=== PATIENT | female | born 1940 | race Caucasian/White ===

== ENCOUNTER → 2016-11-01 | Outpatient (CLI) | payer OTHER | END | disposition home or self-care (01) | LOC: C.PAPS 15:14 | PROVIDERS: ATTEND Obstetrics & Gynecology | DX: Z12.4 Encounter for screening for malignant neoplasm of cervix (principal); N95.2 Postmenopausal atrophic vaginitis ==

== ENCOUNTER → 2016-12-19 | Outpatient (CLI) | payer OTHER, BC ==
--- NOTE | 2016-12-19 14:19 | MAMMOGRAPHY REPORT ---
BILATERAL DIGITAL SCREENING MAMMOGRAM WITH CAD: 12/19/2016 CLINICAL HISTORY: Routine screening. Patient has no complaints. TECHNIQUE: Bilateral CC, MLO and repeat right MLO views were obtained. Current study was also evalu ated with a Computer Aided Detection (CAD) system. COMPARISON: Comparison is made to exams dated: 03/24/2015 mammogram, 12/28/2013 mammogram, 08/13/2012 m ammogram, 05/07/2012 mammogram, and 08/07/2010 mammogram. BREAST COMPOSITION: There are scattered areas of fibroglandular density in both breasts. FINDINGS: There is a 5 mm focal asymmetry in the upper outer middle one third of the left breast, fo r which additional spot compression tomosynthesis views and possibly ultrasound are recommended. There are scattered stable benign-appearing coarse and round calcifications bilaterally. Mild vascul ar calcification in the breasts. No other suspicious mass, architectural distortion or cluster of kristin rocalcifications is seen. IMPRESSION: ACR BI-RADS CATEGORY 0: INCOMPLETE EVALUATION: NEED ADDITIONAL IMAGING EVALUATION The 5 mm focal asymmetry in the upper outer quadrant of the left breast needs additional evaluation. The patient will be called to schedule an appointment. Approximately 10% of breast cancers are not detected with mammography. A negative mammographic report should not delay biopsy if a clinically suggestive mass is present. Pavithra Isidro M.D. ay/:12/19/2016 13:38:29 Field Crop Farmworker: Arlyn Ugarte, [facility] letter sent: Addl Imaging 0 BI-RADS Code: ACR BI-RADS Category 0: Incomplete Evaluation: Need Additional Imaging Evaluation
== END | disposition home or self-care (01) ==
LOC: C.MAMM 12:57
PROVIDERS: ATTEND Obstetrics & Gynecology
DX: Z12.31 Encounter for screening mammogram for malignant neoplasm of breast (principal); N64.89 Other specified disorders of breast

== ENCOUNTER → 2016-12-31 | Outpatient (CLI) | payer OTHER, BC | END | disposition home or self-care (01) | LOC: C.LAB1850 07:39 | PROVIDERS: ATTEND Obstetrics & Gynecology | DX: R73.09 Other abnormal glucose (principal); Z83.3 Family history of diabetes mellitus; N64.89 Other specified disorders of breast; N63 Unspecified lump in breast ==

== ENCOUNTER → 2016-12-31 | Outpatient (CLI) | payer OTHER, BC ==
--- NOTE | 2016-12-31 13:34 | MAMMOGRAPHY REPORT ---
UNILATERAL LEFT DIGITAL DIAGNOSTIC MAMMOGRAM TOMOSYNTHESIS AND TARGETED LEFT ULTRASOUND: 12/31/2016 CLINICAL HISTORY: 76-year-old woman called back from screening mammography for a focal asymmetry in t he upper outer quadrant of the left breast. TECHNIQUE: Spot compression CC and MLO 2-D and tomosynthesis images of the left breast were obtained . COMPARISON: Comparison is made to exams dated: 12/19/2016 mammogram - [facility], 1 05/25/2014 mammogram, 03/24/2015 mammogram - [facility], 12/28/2013 mammogram, 12/28/2013 mammog shaina - [facility], and 08/13/2012 mammogram. BREAST COMPOSITION: There are scattered areas of fibroglandular density in the left breast. FINDINGS: The spot compression views of the left breast demonstrate a persistent mass versus focal a symmetry in the approximate 12:00 middle one third of the left breast measuring 5.2 x 5.3 x 4.6 mm. No associated architectural distortion or microcalcification. Further evaluation with ultrasound was performed. Targeted ultrasound was performed in the 12:00 axis and upper outer quadrant of the left breast. In the 12:30 to 1:00 axis of the left breast, 5 cm from the nipple, there is a subtle hypoechoic solid-a ppearing mass measuring 5.6 x 2.7 x 4.4 mm. This is thought to correlate with the mammographic findi ng and is indeterminate given the solid nature. Definitive characterization with an ultrasound guide d core needle biopsy is recommended. IMPRESSION: ACR BI-RADS CATEGORY 4: SUSPICIOUS, TARGETED ULTRASOUND ACR BI-RADS CATEGORY 4: SUSPICIO US 1. Ultrasound guided core needle biopsy is recommended for an indeterminate solid 5.6 mm mass in the approximate 12:30 left breast, 5 cm from the nipple, thought to correlate with the mammographic find ing. Correlation with postprocedure mammograms is recommended for definitive mammographicultrasound correlation. These results and recommendations were discussed with the patient at the time of the exam. She tenta tively scheduled the left breast biopsy prior to leaving our department. Approximately 10% of breast cancers are not detected with mammography. A negative mammographic report should not delay biopsy if a clinically suggestive mass is present. Pavithra Isidro M.D. ay/:12/31/2016 12:29:12 [employer] T[employer] Builder: Arlyn Ugarte, [facility] letter sent: Abnormal 4/5 BI-RADS Code: ACR BI-RADS Category 4: Suspicious Ultrasound BI-RADS: ACR BI-RADS Category 4: Suspici ous
== END | disposition home or self-care (01) ==
LOC: C.MAMM 11:07
PROVIDERS: ATTEND Obstetrics & Gynecology
DX: N64.89 Other specified disorders of breast (principal); N63 Unspecified lump in breast

== ENCOUNTER → 2017-01-04 | Outpatient (CLI) | payer OTHER, BC ==
--- NOTE | 2017-01-04 11:24 | Discharge Instructions ---
Discharge Instructions Procedure Procedure Date: Jan 04, 2017. Reason for visit: Left Mass. Discharge Discharge Date: Jan 04, 2017. Discharge Diagnosis: status post breast biopsy Instructions Activity Recommendations: Additional Limitations (see below) Return to School/Work: no limitations Recommended Home Diet: No Limitations Provider Instructions: ACTIVITY RECOMMENDATIONS: * No lifting, pushing, pulling or exercising the affected side for three days. RETURN TO SCHOOL/WORK: * You may return to work/school after the procedure, but do not perform any strenuous activities for 24 to 48 hours. MEDICATIONS: * Tylenol (two 325 mg) every four to six hours if needed for mild pain (if not allergic to Tylenol). DIET: * Resume previous diet. SPECIAL CARE INSTRUCTIONS: * Keep biopsy site dry for 24 hours. May shower after 24 hours, but do not soak (bathe) incision. * May remove Tegaderm (plastic patch) tomorrow AFTER showering. * Leave the steri-strips on for one week. Allow the steri-strips to fall off by themselves. If not off after one week, you may remove them. You may place a Bandaid crosswise over the strips, if desired. * Apply ice 10 minutes on and 10 minutes off as needed. * Wear a bra at bedtime to sleep more comfortably for 2-3 days. * Your referring physician should have the results after approximately 5 to 7 business days. * Call for unusual bleeding, fever, drainage, etc or if you have any questions call during normal business hours or after hours call Dr Moss, . FOLLOW UP VISIT: Follow-up with Referring Physician as scheduled. Kaykay Méndez Recommendations: Call your doctor if: * Temperature above 101 degrees * Pain not relieved by pain medicine ordered * There is increased drainage or redness from any incision * You have any unanswered questions or concerns. Your Doctors Instructions noted above were prepared by provider Soha Moss. Patient Signature Section: Patient Instructions Signature Page Ruth Frederick Patient (or Guardian) Signature/Date: I have read and understand the instructions given to me by my caregivers. Caregiver/RN/Doctor Signature/Date: The above-named patient and/or guardian has received patient instructions on this date. + Original Patient Signature Page (only) stays with chart. Please make copy for patient.
--- NOTE | 2017-01-04 14:54 | MAMMOGRAPHY REPORT ---
ULTRASOUND GUIDED BIOPSY LEFT BREAST: 01/04/2017 CLINICAL HISTORY: Left 12:30 to 1:00 breast mass. PATIENT CONSENT: The procedure, risks and benefits were discussed with the patient and informed writt en consent was obtained. A timeout was performed immediately prior to the procedure. PROCEDURE DESCRIPTION: With ultrasound guidance, aseptic technique, and lidocaine as the local anesth etic (1% lidocaine to anesthetize the skin and 1% lidocaine with epinephrine to anesthetize the deepe r tissues), the mass of concern in the left 12:30 to 1:00 breast was sampled 5 times with a 14-gauge Achieve biopsy needle. Immediately thereafter, with ultrasound guidance, aseptic technique, and lidoc may as the local anesthetic, a metallic localizer clip was placed at the biopsy site. Direct pressu re was applied to the site immediately post procedure and hemostasis was achieved. Postprocedure uni lateral mammograms were performed to confirm placement of the clip in the expected location of the br east mass. The patient tolerated the procedure without complication. She was given wound care instru ctions. The specimens were sent to pathology for analysis. COMPARISON: Comparison is made to exams dated: 12/31/2016 ultrasound, 12/31/2016 mammogram, 12/19/2016 mammogram - [facility], 03/24/2015 mammogram, and 12/28/2013 mammogram. IMPRESSION: ULTRASOUND GUIDED BIOPSY Ultrasound guided core needle biopsy of the left 12:30 to 1:00 breast mass, with clip placement. The patient will receive pathology results from her referring provider. Pending benign pathology result s, recommend follow-up diagnostic tomosynthesis mammograms of the left breast in 6 months to confirm stability. Soha Moss M.D. ah/:01/04/2017 11:51:13 Attending Technologist: Jinny LANGE(R)(M), [facility] Cook Short Order: Soha Moss MD, [facility]
--- NOTE | 2017-01-04 14:55 | MAMMOGRAPHY REPORT ---
UNILATERAL LEFT DIGITAL DIAGNOSTIC MAMMOGRAM TOMOSYNTHESIS: 01/04/2017 CLINICAL HISTORY: Status post left breast biopsy. TECHNIQUE: Breast tomosynthesis in addition to standard 2D mammography was performed. Postprocedura l left CC and ML tomosynthesis images including C views were obtained. COMPARISON: Comparison is made to exams dated: 12/31/2016 ultrasound, 12/31/2016 mammogram, 12/19/2016 mammogram - [facility], 03/24/2015 mammogram, and 12/28/2013 mammogram. BREAST COMPOSITION: There are scattered areas of fibroglandular density in the left breast. FINDINGS: A new biopsy marker clip is seen within the left breast status post ultrasound guided biop sy of the left 12:30 to 1:00 breast mass. The clip is located at the site of the mass seen during th e recent diagnostic workup, indicating good correlation between the biopsied sonographic mass and the mammographic mass. No significant postbiopsy hematoma is seen. IMPRESSION: POST PROCEDURE IMAGING FOR MARKER PLACEMENT New biopsy marker clip status post ultrasound guided biopsy of the left 12:30 to 1:00 breast mass. P athology results are pending. Pending benign pathology results, recommend follow-up diagnostic tomos ynthesis mammograms of the left breast in 6 months to confirm stability. Approximately 10% of breast cancers are not detected with mammography. A negative mammographic report should not delay biopsy if a clinically suggestive mass is present. Soha Moss M.D. ah/:01/04/2017 11:53:46 Cow Puncher: Jinny LANGE(Adrianna)(M), [facility] BI-RADS Code: Post Procedure Imaging For Marker Placement
== END | disposition home or self-care (01) ==
LOC: C.MAMM 10:34
PROVIDERS: ATTEND Obstetrics & Gynecology
DX: N63 Unspecified lump in breast (principal)

== ENCOUNTER → 2017-11-11 | Outpatient (CLI) | payer OTHER | END | disposition home or self-care (01) | LOC: C.PAPS 18:05 | PROVIDERS: ATTEND Obstetrics & Gynecology | DX: Z12.4 Encounter for screening for malignant neoplasm of cervix (principal) ==